=== PATIENT | female | born 1955 ===

== ENCOUNTER 2018-07-18 09:37 | Outpatient (CLI) | payer MEDICAID | END 2018-07-18 09:38 | disposition home or self-care (01) | LOC: C.PAT 09:37 ==

== ENCOUNTER 2018-07-27 12:11 | Inpatient (IN) | payer MEDICAID ==
[2018-07-27 12:11] VITALS: BMI 34.2
[2018-07-27 13:55] LABS: BASO # 0.1 K/uL (0.0-0.2); BASO % 0.8 % (0.0-2.0); EOS # 0.4 K/uL (0.0-0.7); EOS % 5.8 % (0.0-4.0); HEMOGLOBIN 12.6 g/dL (11.0-16.0); LYMPH # 2.6 K/uL (1.0-4.3); LYMPH % 41.1 % (20.0-40.0); MEAN CELL VOLUME 87.2 fL (81.0-99.0); MEAN CORPUSCULAR HEMOGLOBIN 28.8 pg (27.0-31.0); MEAN PLATELET VOLUME 8.9 fL (7.2-11.7); MONO # 0.7 K/uL (0.0-0.8); MONO % 10.7 % (0.0-10.0); NEUT # 2.7 K/uL (1.8-7.0); NEUT % 41.6 % (50.0-75.0); NRBC % 0.1 % (0.0-2.0); RBC 4.38 Mil/uL (3.80-5.20); RED CELL DISTRIBUTION WIDTH 14.2 % (11.5-14.5); WHITE BLOOD COUNT 6.4 K/uL (4.8-10.8)
[2018-07-27 14:22] LABS: CK-MB 0.81 ng/mL (0.0-3.38)
[2018-07-27 14:30] LABS: ALB/GLOB RATIO 1.5 (1.0-2.1); ALBUMIN 4.4 g/dL (3.5-5.0); ALT/SGPT < 6 U/L (9-52); AST/SGOT 35 U/L (14-36); BLOOD UREA NITROGEN 12 mg/dL (7-17); CALCIUM 9.6 mg/dl (8.6-10.4); GFR NON-AFRICAN AMERICAN > 60; LIPASE 38 U/L (23-300)
--- NOTE | 2018-07-27 14:40 | RAD ---
HISTORY: SOB COMPARISON: None available. TECHNIQUE: Chest PA and lateral FINDINGS: Examination limited by habitus. LUNGS: No focal consolidation. Please note that chest x-ray has limited sensitivity for the detection of pulmonary masses. PLEURA: No significant pleural effusion identified. No definite pneumothorax . CARDIOVASCULAR: Heart size appears top normal. No atherosclerotic calcification present. OSSEOUS STRUCTURES: Degenerative changes. VISUALIZED UPPER ABDOMEN: Unremarkable. OTHER FINDINGS: None. IMPRESSION: No focal consolidation.
--- NOTE | 2018-07-27 15:08 | C.PDOC ---
History Of Present Illness 63 y/o female presents to the ER complaining of chest pain which has been present for the past few months. Patient states that she had a stress test 1 month ago. Patient reports that her occupational therapy co director is . She notes that instructed to her to go the ER if she has chest pain. Denies having SOB, fever,chills, nausea, vomiting, and leg swelling. Time Seen by Provider: 07/27/18 13:21 Chief Complaint (Nursing): Chest Pain History Per: Patient History/Exam Limitations: no limitations Onset/Duration Of Symptoms: Days Current Symptoms Are (Timing): Still Present Severity: Moderate Past Medical History Reviewed: Historical Data, Nursing Documentation, Vital Signs Vital Signs: Last Vital Signs Temp 98.4 F 07/27/18 12:21 Pulse 69 07/27/18 12:21 Resp 18 07/27/18 12:21 BP 131/82 07/27/18 12:21 Pulse Ox 97 07/27/18 12:21 - Medical History PMH: Arthritis, HTN, Hypercholesterolemia Denies: CAD, CHF, Gastritis, Pancreatitis, Chronic Kidney Disease Surgical History: Cholecystectomy - [facility] Procedures INJECT/INFUSE NEC (08/05/13) NEBULIZER THERAPY (04/19/13) PHYSICAL THERAPY NEC (03/07/13) Family History: States: No Known Family Hx - Social History Hx Alcohol Use: No Hx Substance Use: No Review Of Systems Except As Marked, All Systems Reviewed And Found Negative. Constitutional: Negative for: Fever, Chills Cardiovascular: Positive for: Chest Pain Respiratory: Negative for: Shortness of Breath Gastrointestinal: Negative for: Nausea, Vomiting, Abdominal Pain Physical Exam - Physical Exam Appears: Non-toxic, No Acute Distress Skin: Normal Color, Warm, Dry Head: Atraumatic, Normacephalic Eye(s): bilateral: Normal Inspection Nose: Normal Oral Mucosa: Moist Neck: Supple Chest: Symmetrical, No Tenderness Cardiovascular: Rhythm Regular Respiratory: Normal Breath Sounds, No Rales, No Rhonchi, No Wheezing Gastrointestinal/Abdominal: Normal Exam, Soft, No Tenderness, No Guarding, No Re bound Neurological/Psych: Oriented x3, Normal Speech ED Course And Treatment - Laboratory Results Result Diagrams: 07/27/18 13:30 07/27/18 13:30 Lab Results: Troponin I < 0.0120 ng/mL (0.00-0.120) 07/27/18 13:30 Total Bilirubin 0.4 mg/dL (0.2-1.3) 07/27/18 13:30 AST 35 U/L (14-36) 07/27/18 13:30 ALT < 6 U/L (9-52) L 07/27/18 13:30 Alkaline Phosphatase 80 U/L (38-126) 07/27/18 13:30 Total Protein 7.3 g/dL (6.3-8.3) 07/27/18 13:30 Albumin 4.4 g/dL (3.5-5.0) 07/27/18 13:30 Globulin 2.9 gm/dL (2.2-3.9) 07/27/18 13:30 Albumin/Globulin Ratio 1.5 (1.0-2.1) 07/27/18 13:30 Lipase 38 U/L (23-300) 07/27/18 13:30 Lab Interpretation: Normal ECG: Interpreted By Me ECG Rhythm: Sinus Bradycardia, ST/T Changes ECG Interpretation: No Changes From Prior Rate From EC O2 Sat by Pulse Oximetry: 97 (RA) Pulse Ox Interpretation: Normal - Radiology CXR: Interpreted by Ny CXR Interpretation: Yes: No Acute Disease Progress Note: Case discussed with Dr Fraga who did recent stress test and found to be abnormal. Treated with medication. 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 - Scribe Statement The provider has reviewed the documentation as recorded by the Scribe Dae Almazan Provider Attestation All medical record entries made by the Scribe were at my direction and pe rsonally dictated by me. I have reviewed the chart and agree that the record accurately reflects my personal performance of the history, physical exam, medical decision making, and the department course for this patient. I have also personally directed, reviewed, and agree with the discharge instructions and disposition.
--- NOTE | 2018-07-27 16:31 | CP.PCM.PN ---
Subjective - Date & Time of Evaluation Date of Evaluation: 07/27/18 Time of Evaluation: 16:31 - Subjective Subjective: Medicine Progress Note - Dr Melgar's service Patient is a 63 year old female with past medical history of hypertension, hypercholesterolemia who presented to the emergency room for chest pain x 2 months. Patient states that the chest pain is left sided and intermittent in nature. Pain is worse at night and prevents her from being able to sleep. She follows with Dr Fraga who recently performed a stress test that was abnormal. She states that she never had a cardiac catherization before in the past. Patient states that she experiences dyspnea and fatigue when ambulating. Currently she states that the chest pain is 3/10 on pain scale. Patient took aspirin and Tylenol last night. She did not take anything for the pain prior to arrival. Offers no other complaints at this time Allergies: NKDA Medications: Imdur 15mg PO daily, Metoprolol 25mg PO daily, ASA 81mg, Crestor 20mg PO HS, Nitroglycerin 0.4mg Medical History: Hypertension, Hypercholesterolemia, Angina Surgical History: D+C, cholecystectomy, BTL Social History: Denies alcohol, tobacco, drug use Family History: DM, HTN Objective - Vital Signs/Intake and Output Vital Signs (last 24 hours): Temp Pulse Resp BP Pulse Ox 98.3 F 54 L 14 124/75 97 07/27/18 15:37 07/27/18 15:37 07/27/18 15:37 07/27/18 15:37 07/27/18 15:57 - Medications Medications: Current Medications Aspirin (Ecotrin) 81 mg PO DAILY [facility] Enoxaparin Sodium (Lovenox) 40 mg SC DAILY [facility] Pantoprazole Sodium (Protonix Inj) 40 mg IVP DAILY [facility] - Labs Labs: 07/27/18 13:30 07/27/18 13:30 - Constitutional Appears: Non-toxic, No Acute Distress - Head Exam Head Exam: ATRAUMATIC, NORMAL INSPECTION, NORMOCEPHALIC - Eye Exam Eye Exam: EOMI, Normal appearance - ENT Exam ENT Exam: Mucous Membranes Moist - Respiratory Exam Respiratory Exam: Clear to Ausculation Bilateral, NORMAL BREATHING PATTERN. absent: Rales, Rhonchi, Wheezes - Cardiovascular Exam Cardiovascular Exam: REGULAR RHYTHM, +S1, +S2. absent: Murmur - GI/Abdominal Exam GI & Abdominal Exam: Soft. absent: Guarding, Rigid, Tenderness - Extremities Exam Extremities Exam: absent: Calf Tenderness, Joint Swelling, Pedal Edema, Tenderness - Neurological Exam Neurological Exam: Alert, Awake, Oriented x3 - Psychiatric Exam Psychiatric exam: Normal Affect, Normal Mood - Skin Skin Exam: Dry, Normal Color, Warm Assessment and Plan - Assessment and Plan (Free Text) Assessment: Chest pain r/o ACS -Will monitor on telemetry -Initial troponin is negative, trend q6H x 2 -EKG showed NSR at 67 bpm -Continue Aspirin 81mg PO daily -F/U hemoglobin A1C, TSH, Lipid panel -Patient had abnormal stress test on 07/18/18 - hypertension precipitated by exercises, mild perfusion defect of the inferior wall of the left ventricle -CXR on admission showed no focal consolidation -We will order echocardiogram -Cardiology on consult, Dr Fraga, help appreciated Hypertension -Started on Metoprolol 25mg PO daily GI/DVT ppx : -Protonix 40mg IVP daily -Lovenox 40mg SC daily Plan discussed with Dr Talia Enriquez DO PGY-2
[2018-07-27 20:20] LABS: CK-MB 0.84 ng/mL (0.0-3.38)
[2018-07-28 01:48] LABS: SQUAMOUS EPITHIAL < 1 /hpf (0-5); URINE BILIRUBIN NEGATIVE (NEGATIVE); URINE BLOOD NEGATIVE (NEGATIVE); URINE CLARITY Clear (Clear); URINE COLOR Yellow (YELLOW); URINE GLUCOSE (UA) NORMAL (Normal); URINE LEUKOCYTE ESTERASE NEG Leu/uL (Negative); URINE PROTEIN NEGATIVE (NEGATIVE); URINE UROBILINOGEN NORMAL mg/dL (0.2-1.0)
[2018-07-28 02:21] LABS: CK-MB 0.73 ng/mL (0.0-3.38)
--- NOTE | 2018-07-28 07:00 | CP.PCM.PN ---
Subjective - Date & Time of Evaluation Date of Evaluation: 07/28/18 Time of Evaluation: 06:59 - Subjective Subjective: Medical Progress Note - Dr Melgar's Service Patient seen and examined at bedside. Per nursing no acute events overnight. Patient is doing well. She is NPO for cardiac catherization this afternoon. Objective - Vital Signs/Intake and Output Vital Signs (last 24 hours): Temp Pulse Resp BP Pulse Ox 98.2 F 53 L 20 124/81 99 07/27/18 23:30 07/27/18 23:30 07/27/18 23:30 07/27/18 23:30 07/27/18 23:30 Intake and Output: 07/27/18 07/28/18 18:59 06:59 Intake Total 10 Balance 10 - Medications Medications: Current Medications Aspirin (Ecotrin) 81 mg PO DAILY [facility] Enoxaparin Sodium (Lovenox) 40 mg SC DAILY [facility] Isosorbide Mononitrate (Imdur Er) 15 mg PO DAILY [facility] Metoprolol Succinate (Toprol Xl) 25 mg PO DAILY [facility] Pantoprazole Sodium (Protonix Inj) 40 mg IVP DAILY [facility] Pneumococcal Polyvalent Vaccine (Pneumovax 23 Vaccine) 0.5 ml IM .ONCE ONE Stop: 07/29/18 10:01 Rosuvastatin Calcium (Crestor) 20 mg PO HS [facility] Last Admin: 07/28/18 00:06 Dose: 20 mg - Labs Labs: 07/27/18 13:30 07/27/18 13:30 - Additional Findings Additional findings: - Constitutional Appears: Non-toxic, No Acute Distress - Head Exam Head Exam: ATRAUMATIC, NORMAL INSPECTION, NORMOCEPHALIC - Eye Exam Eye Exam: EOMI, Normal appearance - ENT Exam ENT Exam: Mucous Membranes Moist - Respiratory Exam Respiratory Exam: Clear to Ausculation Bilateral, NORMAL BREATHING PATTERN. absent: Rales, Rhonchi, Wheezes - Cardiovascular Exam Cardiovascular Exam: REGULAR RHYTHM, +S1, +S2. absent: Murmur - GI/Abdominal Exam GI & Abdominal Exam: Soft. absent: Guarding, Rigid, Tenderness - Extremities Exam Extremities Exam: absent: Calf Tenderness, Joint Swelling, Pedal Edema, Tenderness - Neurological Exam Neurological Exam: Alert, Awake, Oriented x3 - Psychiatric Exam Psychiatric exam: Normal Affect, Normal Mood - Skin Skin Exam: Dry, Normal Color, Warm Assessment and Plan - Assessment and Plan (Free Text) Assessment: Chest pain r/o ACS -Will monitor on telemetry -Troponins negative x 3 -EKG showed NSR at 67 bpm -Continue Aspirin 81mg PO daily, Lisinopril 10mg PO daily, Imdur 15mg PO daily, Crestor 20mg PO HS -Patient had abnormal stress test on 07/18/18 - hypertension precipitated by exercises, mild perfusion defect of the inferior wall of the left ventricle -CXR on admission showed no focal consolidation -Echocardiogram official report pending -NPO for cardiac catherization this afternnon -Cardiology on consult, Dr Fraga, help appreciated Hypertension -Started on Metoprolol 25mg PO daily GI/DVT ppx : -Protonix 40mg IVP daily -Lovenox 40mg SC daily Plan discussed with Dr Talia Enriquez DO PGY-2
[2018-07-28 08:21] LABS: BASO # 0.1 K/uL (0.0-0.2); BASO % 0.8 % (0.0-2.0); EOS # 0.4 K/uL (0.0-0.7); EOS % 5.8 % (0.0-4.0); HEMOGLOBIN 12.3 g/dL (11.0-16.0); LYMPH % 41.8 % (20.0-40.0); MEAN CELL VOLUME 86.9 fL (81.0-99.0); MEAN CORPUSCULAR HEMOGLOBIN 28.6 pg (27.0-31.0); MEAN CORPUSCULAR HGB CONC 32.9 g/dL (33.0-37.0); MEAN PLATELET VOLUME 8.9 fL (7.2-11.7); MONO # 0.7 K/uL (0.0-0.8); NEUT # 2.9 K/uL (1.8-7.0); NEUT % 41.6 % (50.0-75.0); NRBC % 0.2 % (0.0-2.0); RBC 4.32 Mil/uL (3.80-5.20); WHITE BLOOD COUNT 7.1 K/uL (4.8-10.8)
[2018-07-28 08:30] LABS: ALB/GLOB RATIO 1.5 (1.0-2.1); ALBUMIN 3.9 g/dL (3.5-5.0); ALT/SGPT 10 U/L (9-52); AST/SGOT 29 U/L (14-36); BLOOD UREA NITROGEN 12 mg/dL (7-17); CALCIUM 9.3 mg/dl (8.6-10.4); GFR NON-AFRICAN AMERICAN > 60; HDL CHOLESTEROL 43 mg/dL (30-70)
[2018-07-28 08:42] LABS: LDL CHOLESTEROL 47 mg/dL (0-129)
[2018-07-28] MEDS: Metoprolol Succinate 25 mg XL Tab PO SCH (09:41)
[2018-07-28] MEDS: Enoxaparin 40 mg Syringe SC SCH (09:41)
--- NOTE | 2018-07-28 10:09 | CP.PCM.CON ---
History of Present Illness - History of Present Illness History of Present Illness: Andrew Siddiqi, PGY-1, Cardiology Consult Note for Dr. Fraga 63 year old female with past medical history of hypertension presents with left sided chest pain radiating to the left arm and neck. Patient reports pain started a few months ago and describes the pain as "trapping". Pain is improved with nitroglycerin and worsened with exertion. Patient can walk less than half a block prior to having chest pain, shortness of breath, and nausea. Patient denies any other symptoms at this time. PMH: HTN PSH: cholecystectomy FMHx: denies SHx: denies tobacco, alcohol, or recreational drug use Allergies: NKDA PMD: Dr. Melgar Transit Bus Operator: Dr. Melgar No prior cardiac catheterizations Stress test was performed one month ago with unknown results. Review of Systems - Review of Systems Review of Systems: except as mentioned in HPI Past Patient History - Past Medical History & Family History Past Medical History?: Yes - Past Social History Smoking Status: Never Smoked - CARDIAC Hx Cardiac Disorders: Yes Hx Congestive Heart Failure: No Hx Hypercholesterolemia: Yes Hx Hypertension: Yes - PULMONARY Hx Respiratory Disorders: Yes Hx Pneumonia: Yes - NEUROLOGICAL Hx Neurological Disorder: No - HEENT Hx HEENT Problems: Yes Other/Comment: WEAR GLASSES FOR POOR VISION - RENAL Hx Chronic Kidney Disease: No - ENDOCRINE/METABOLIC Hx Endocrine Disorders: No - HEMATOLOGICAL/ONCOLOGICAL Hx Blood Disorders: No - INTEGUMENTARY Hx Dermatological Problems: No - MUSCULOSKELETAL/RHEUMATOLOGICAL Hx Falls: No - GASTROINTESTINAL Hx Gastrointestinal Disorders: No Hx Gastritis: No Hx Pancreatitis: No - GENITOURINARY/GYNECOLOGICAL Hx Genitourinary Disorders: No - PSYCHIATRIC Hx Substance Use: No - SURGICAL HISTORY Hx Surgeries: Yes Hx Cholecystectomy: Yes - ANESTHESIA Hx Anesthesia: Yes Hx Anesthesia Reactions: No Hx Malignant Hyperthermia: No Meds Allergies/Adverse Reactions: Allergies Allergy/AdvReac Type Severity Reaction Status Date / Time No Known Allergies Allergy Verified 07/18/18 09:48 - Medications Medications: Current Medications Aspirin (Ecotrin) 81 mg PO DAILY [facility] Last Admin: 07/28/18 09:41 Dose: Not Given Enoxaparin Sodium (Lovenox) 40 mg SC DAILY [facility] Last Admin: 07/28/18 09:41 Dose: Not Given Isosorbide Mononitrate (Imdur Er) 15 mg PO DAILY [facility] Last Admin: 07/28/18 09:41 Dose: Not Given Metoprolol Succinate (Toprol Xl) 25 mg PO DAILY [facility] Last Admin: 07/28/18 09:41 Dose: Not Given Pantoprazole Sodium (Protonix Inj) 40 mg IVP DAILY [facility] Last Admin: 07/28/18 09:41 Dose: Not Given Pneumococcal Polyvalent Vaccine (Pneumovax 23 Vaccine) 0.5 ml IM .ONCE ONE Stop: 07/29/18 10:01 Rosuvastatin Calcium (Crestor) 20 mg PO [facility] Last Admin: 07/28/18 00:06 Dose: 20 mg Physical Exam - Constitutional Appears: Well, Non-toxic, No Acute Distress - Head Exam Head Exam: ATRAUMATIC, NORMAL INSPECTION, NORMOCEPHALIC - Eye Exam Eye Exam: EOMI, PERRL - ENT Exam ENT Exam: Mucous Membranes Moist - Respiratory Exam Respiratory Exam: Clear to Auscultation Bilateral, NORMAL BREATHING PATTERN - Cardiovascular Exam Cardiovascular Exam: REGULAR RHYTHM, RRR, +S1, +S2 - GI/Abdominal Exam GI & Abdominal Exam: Normal Bowel Sounds, Soft. absent: Tenderness - Extremities Exam Extremities exam: Positive for: full ROM, normal inspection. Negative for: pedal edema - Neurological Exam Neurological exam: Alert, CN II-XII Intact, Oriented x3 - Skin Skin Exam: Dry, Intact Results - Vital Signs Recent Vital Signs: Last Vital Signs Temp 98.8 F 07/28/18 07:00 Pulse 50 L 07/28/18 08:07 Resp 18 07/28/18 07:00 BP 122/79 07/28/18 07:00 Pulse Ox 96 07/28/18 07:00 - Labs Result Diagrams: 07/28/18 08:07 07/28/18 08:07 Labs: Laboratory Results - last 24 hr 07/27/18 07/27/18 07/27/18 13:30 13:30 19:48 WBC 6.4 RBC 4.38 Hgb 12.6 Hct 38.2 MCV 87.2 MCH 28.8 MCHC 33.0 RDW 14.2 Plt Count 349 MPV 8.9 Neut % (Auto) 41.6 L Lymph % (Auto) 41.1 H [place] % (Auto) 10.7 H Eos % (Auto) 5.8 H Baso % (Auto) 0.8 Neut # (Auto) 2.7 Lymph # (Auto) 2.6 [place] # (Auto) 0.7 Eos # (Auto) 0.4 Baso # (Auto) 0.1 Sodium 137 Potassium 4.5 Chloride 102 Carbon Dioxide 32 H Anion Gap 8 L BUN 12 Creatinine 0.8 Est GFR ( Amer) > 60 Est GFR (Non-Af Amer) > 60 Random Glucose 79 Hemoglobin A1c Calcium 9.6 Total Bilirubin 0.4 AST 35 ALT < 6 L Alkaline Phosphatase 80 Total Creatine Kinase 75 CK-MB (Mass) 0.81 0.84 Troponin I < 0.0120 < 0.0120 Total Protein 7.3 Albumin 4.4 Globulin 2.9 Albumin/Globulin Ratio 1.5 Triglycerides Cholesterol LDL Cholesterol Direct HDL Cholesterol Lipase 38 Free T4 TSH 3rd Generation Urine Color Urine Clarity Urine pH Ur Specific Willows Urine Protein Urine Glucose (UA) Urine Ketones Urine Blood Urine Nitrate Urine Bilirubin Urine Urobilinogen Ur Leukocyte Esterase Urine WBC (Auto) Urine RBC (Auto) Ur Squamous Epith Cells 07/28/18 07/28/18 07/28/18 01:42 01:45 08:07 WBC 7.1 RBC 4.32 Hgb 12.3 Hct 37.5 MCV 86.9 MCH 28.6 MCHC 32.9 L RDW 14.0 Plt Count 316 MPV 8.9 Neut % (Auto) 41.6 L Lymph % (Auto) 41.8 H [place] % (Auto) 10.0 Eos % (Auto) 5.8 H Baso % (Auto) 0.8 Neut # (Auto) 2.9 Lymph # (Auto) 3.0 [place] # (Auto) 0.7 Eos # (Auto) 0.4 Baso # (Auto) 0.1 Sodium Potassium Chloride Carbon Dioxide Anion Gap BUN Creatinine Est GFR ( Amer) Est GFR (Non-Af Amer) Random Glucose Hemoglobin A1c Calcium Total Bilirubin AST ALT Alkaline Phosphatase Total Creatine Kinase 69 CK-MB (Mass) 0.73 Troponin I < 0.0120 Total Protein Albumin Globulin Albumin/Globulin Ratio Triglycerides Cholesterol LDL Cholesterol Direct HDL Cholesterol Lipase Free T4 TSH 3rd Generation Urine Color Yellow Urine Clarity Clear Urine pH 7.0 Ur Specific [place] 1.010 Urine Protein Negative Urine Glucose (UA) Normal Urine Ketones Negative Urine Blood Negative Urine Nitrate Negative Urine Bilirubin Negative Urine Urobilinogen Normal Ur Leukocyte Esterase Neg Urine WBC (Auto) < 1 Urine RBC (Auto) 1 Ur Squamous Epith Cells < 1 07/28/18 07/28/18 07/28/18 08:07 08:07 08:07 WBC RBC Hgb Hct MCV MCH MCHC RDW Plt Count MPV Neut % (Auto) Lymph % (Auto) [place] % (Auto) Eos % (Auto) Baso % (Auto) Neut # (Auto) Lymph # (Auto) [place] # (Auto) Eos # (Auto) Baso # (Auto) Sodium 137 Potassium 4.3 Chloride 100 Carbon Dioxide 35 H Anion Gap 7 L BUN 12 Creatinine 0.9 Est GFR ( Amer) > 60 Est GFR (Non-Af Amer) > 60 Random Glucose 86 Hemoglobin A1c 5.4 Calcium 9.3 Total Bilirubin 0.5 AST 29 ALT 10 Alkaline Phosphatase 73 Total Creatine Kinase CK-MB (Mass) Troponin I Total Protein 6.5 Albumin 3.9 Globulin 2.6 Albumin/Globulin Ratio 1.5 Triglycerides 135 Cholesterol 96 LDL Cholesterol Direct 47 HDL Cholesterol 43 Lipase Free T4 0.96 TSH 3rd Generation 3.43 Urine Color Urine Clarity Urine pH Ur Specific [place] Urine Protein Urine Glucose (UA) Urine Ketones Urine Blood Urine Nitrate Urine Bilirubin Urine Urobilinogen Ur Leukocyte Esterase Urine WBC (Auto) Urine RBC (Auto) Ur Squamous Epith Cells Assessment & Plan (1) Chest pain Assessment and Plan: EKG: NSR Tropx3: unremarkable HgbA1c: 5.4 Lipid panel unremarkable Continue with aspirin, imdur, zestril, metoprolol succinate, and rosuvastatin. Patient scheduled for cardiac catheterization today. Status: Acute (2) Hypertension Assessment and Plan: Continue with lisinopril and metoprolol succinate. Status: Acute - Date & Time Date: 07/28/18 Time: 10:09
[2018-07-28] MEDS ORDERED: Lidocaine 2% MPF (5 ml) Inj ONE (16:57)
[2018-07-28] MEDS ORDERED: Iohexol 350mg/ml 100 ML ONE (16:58)
[2018-07-28] MEDS ORDERED: Midazolam 2 MG/2 ML VIAL ONE (18:11)
--- NOTE | 2018-07-29 02:11 | CARDCATH ---
PROCEDURE DATE: 07/28/2018 INDICATIONS: Ms. Bob is a 63-year-old female who was having ongoing episodes of intermittent chest pain, underwent a nuclear stress test, which showed evidence of ischemia and therefore was brought to the hatchery laborer. The patient initially was scheduled for outpatient catheterization, but was turned down by insurance company. She continued to have recurrent bouts of chest pain and came to the ER. Because of recent abnormal nuclear stress test, it was decided to proceed with catheterization for further evaluation and treatment. PROCEDURES PERFORMED: Left heart catheterization with selective left and right coronary angiogram, left ventriculogram, 6-Maltese right femoral arterial access, Mynx closure device for hemostasis. ANGIOGRAPHIC FINDINGS: Left main large-sized vessel bifurcates into left anterior descending and left circumflex coronary artery. Left main free of any obstructive disease. Left circumflex runs in the AV groove. A large-sized vessel gives off 2 medium-sized obtuse marginal branches, free of any obstructive disease. LAD is a large-sized vessel, gives off small diagonal 1 and a medium-sized diagonal 2 branches. After the diagonal 2, there is 40% mid LAD myocardial bridging noted. It is a type 3 wraparound LAD. RCA is a large-sized vessel, gives off a RV marginal branch, right PDA and PLV. RCA is free of any obstructive disease, also gives a small-sized branch. Left ventricular ejection fraction is normal, 60% to 65%. LVEDP was 20. IMPRESSION: Mid left anterior descending myocardial bridge, nonobstructive coronary artery disease, normal left ventricular ejection fraction. RECOMMENDATIONS: Continue aggressive medical management and risk factor modification. The patient can be discharged home tomorrow. Fabricio Fraga MD
[2018-07-29 07:21] LABS: BASO % 0.7 % (0.0-2.0); EOS # 0.5 K/uL (0.0-0.7); EOS % 6.1 % (0.0-4.0); HEMOGLOBIN 12.8 g/dL (11.0-16.0); LYMPH # 2.5 K/uL (1.0-4.3); LYMPH % 34.5 % (20.0-40.0); MEAN CELL VOLUME 86.9 fL (81.0-99.0); MEAN CORPUSCULAR HEMOGLOBIN 28.6 pg (27.0-31.0); MEAN CORPUSCULAR HGB CONC 32.9 g/dL (33.0-37.0); MEAN PLATELET VOLUME 8.9 fL (7.2-11.7); MONO # 0.8 K/uL (0.0-0.8); MONO % 11.3 % (0.0-10.0); NEUT # 3.5 K/uL (1.8-7.0); NEUT % 47.4 % (50.0-75.0); RBC 4.47 Mil/uL (3.80-5.20); RED CELL DISTRIBUTION WIDTH 13.8 % (11.5-14.5); WHITE BLOOD COUNT 7.3 K/uL (4.8-10.8)
--- NOTE | 2018-07-29 07:39 | CP.PCM.PN ---
Subjective - Date & Time of Evaluation Date of Evaluation: 07/29/18 Time of Evaluation: 07:36 - Subjective Subjective: Andrew Siddiqi, PGY-1, Cardiology Progress Note for Dr. Fraga Patient seen and evaluated at bedside. Patient had no acute overnight events. Patient reports improvement in chest pain and shortness of breath today. Objective - Vital Signs/Intake and Output Vital Signs (last 24 hours): Temp Pulse Resp BP Pulse Ox 97.8 F 62 20 123/67 100 07/28/18 19:55 07/28/18 23:45 07/28/18 19:55 07/28/18 19:55 07/28/18 19:55 Intake and Output: 07/29/18 07/29/18 06:59 18:59 Intake Total 240 Balance 240 - Medications Medications: Current Medications Aspirin (Ecotrin) 81 mg PO DAILY [facility] Last Admin: 07/28/18 09:41 Dose: Not Given Enoxaparin Sodium (Lovenox) 40 mg SC DAILY [facility] Last Admin: 07/28/18 09:41 Dose: Not Given Isosorbide Mononitrate (Imdur Er) 15 mg PO DAILY [facility] Last Admin: 07/28/18 09:41 Dose: Not Given Lisinopril (Zestril) 10 mg PO DAILY [facility] Metoprolol Succinate (Toprol Xl) 25 mg PO DAILY [facility] Last Admin: 07/28/18 09:41 Dose: Not Given Pantoprazole Sodium (Protonix Inj) 40 mg IVP DAILY [facility] Last Admin: 07/28/18 09:41 Dose: Not Given Pneumococcal Polyvalent Vaccine (Pneumovax 23 Vaccine) 0.5 ml IM .ONCE ONE Stop: 07/29/18 10:01 Rosuvastatin Calcium (Crestor) 20 mg PO [facility] Last Admin: 07/28/18 21:02 Dose: 20 mg - Labs Labs: 07/29/18 07:04 07/28/18 08:07 - Constitutional Appears: Well, Non-toxic, No Acute Distress - Head Exam Head Exam: ATRAUMATIC, NORMAL INSPECTION, NORMOCEPHALIC - Eye Exam Eye Exam: EOMI, PERRL - ENT Exam ENT Exam: Mucous Membranes Moist - Respiratory Exam Respiratory Exam: Clear to Auscultation Bilateral, NORMAL BREATHING PATTERN - Cardiovascular Exam Cardiovascular Exam: REGULAR RHYTHM, RRR, +S1, +S2 - GI/Abdominal Exam GI & Abdominal Exam: Normal Bowel Sounds, Soft. absent: Tenderness - Extremities Exam Extremities exam: Positive for: full ROM, normal inspection. Negative for: pedal edema - Neurological Exam Neurological exam: Alert, CN II-XII Intact, Oriented x3 - Skin Skin Exam: Dry, Intact Assessment and Plan (1) Chest pain Assessment & Plan: EKG: NSR Tropx3: unremarkable HgbA1c: 5.4 Lipid panel unremarkable Cardiac catheterization: mid LAD myocardial bridge, nonobstructive CAD, normal LVEF Continue with aspirin, imdur, zestril, metoprolol succinate, and rosuvastatin. Patient is clear for discharge today from a cardiac standpoint. Status: Acute (2) Hypertension Assessment & Plan: Continue with lisinopril and metoprolol succinate. Status: Acute
--- NOTE | 2018-07-29 07:45 | CP.PCM.PN ---
Subjective - Date & Time of Evaluation Date of Evaluation: 07/29/18 Time of Evaluation: 09:15 - Subjective Subjective: Medical Progress Note - Dr Melgar's Service Patient seen and examined at bedside. No overnight events reported. Patient offers no complaints at this time. 12 point-ROS negative. Objective - Vital Signs/Intake and Output Vital Signs (last 24 hours): Temp Pulse Resp BP Pulse Ox 97.8 F 57 L 20 123/67 100 07/28/18 19:55 07/29/18 07:42 07/28/18 19:55 07/28/18 19:55 07/28/18 19:55 Intake and Output: 07/29/18 07/29/18 06:59 18:59 Intake Total 240 Balance 240 - Medications Medications: Current Medications Aspirin (Ecotrin) 81 mg PO DAILY [facility] Last Admin: 07/28/18 09:41 Dose: Not Given Enoxaparin Sodium (Lovenox) 40 mg SC DAILY [facility] Last Admin: 07/28/18 09:41 Dose: Not Given Isosorbide Mononitrate (Imdur Er) 15 mg PO DAILY [facility] Last Admin: 07/28/18 09:41 Dose: Not Given Lisinopril (Zestril) 10 mg PO DAILY [facility] Metoprolol Succinate (Toprol Xl) 25 mg PO DAILY [facility] Last Admin: 07/28/18 09:41 Dose: Not Given Pantoprazole Sodium (Protonix Inj) 40 mg IVP DAILY [facility] Last Admin: 07/28/18 09:41 Dose: Not Given Pneumococcal Polyvalent Vaccine (Pneumovax 23 Vaccine) 0.5 ml IM .ONCE ONE Stop: 07/29/18 10:01 Rosuvastatin Calcium (Crestor) 20 mg PO [facility] Last Admin: 07/28/18 21:02 Dose: 20 mg - Labs Labs: 07/29/18 07:04 07/28/18 08:07 - Neck Exam Additional comments: - Constitutional Appears: Non-toxic, No Acute Distress - Head Exam Head Exam: ATRAUMATIC, NORMAL INSPECTION, NORMOCEPHALIC - Eye Exam Eye Exam: EOMI, Normal appearance - ENT Exam ENT Exam: Mucous Membranes Moist - Respiratory Exam Respiratory Exam: Clear to Ausculation Bilateral, NORMAL BREATHING PATTERN. absent: Rales, Rhonchi, Wheezes - Cardiovascular Exam Cardiovascular Exam: REGULAR RHYTHM, +S1, +S2. absent: Murmur - GI/Abdominal Exam GI & Abdominal Exam: Soft. absent: Guarding, Rigid, Tenderness - Extremities Exam Extremities Exam: absent: Calf Tenderness, Joint Swelling, Pedal Edema, Tenderness - Neurological Exam Neurological Exam: Alert, Awake, Oriented x3 - Psychiatric Exam Psychiatric exam: Normal Affect, Normal Mood - Skin Skin Exam: Dry, Normal Color, Warm Assessment and Plan - Assessment and Plan (Free Text) Assessment: 63 year old female with PMHx of HTN, admitted for evaluation and treatment of chest pain r/o ACS. Plan: Chest pain r/o ACS S/P Cardiac Cath -Troponins negative x 3 -EKG showed NSR at 67 bpm -Continue Aspirin 81mg PO daily, Lisinopril 10mg PO daily, Imdur 15mg PO daily, Crestor 20mg PO HS -Patient had abnormal stress test on 07/18/18 - hypertension precipitated by exe rcises, mild perfusion defect of the inferior wall of the left ventricle -CXR on admission showed no focal consolidation -Echocardiogram official report pending -NPO for cardiac catherization this afternnon -Cardiology on consult, Dr Fraga, help appreciated Hypertension - Cont. Metoprolol 25mg PO daily GI/DVT ppx : -Protonix 40mg IVP daily -Lovenox 40mg SC daily Dispo: Cardiac catheterization showed mid LAD myocardial bridge, nonobstructive CAD, normal LVEF. Patient cleared for DC per Cardio. Will Discharge today. Prescriptions in the chart. Plan discussed with Dr Talia Petit, DO PGY-2
[2018-07-29 07:55] LABS: ALB/GLOB RATIO 1.4 (1.0-2.1); ALBUMIN 3.9 g/dL (3.5-5.0); ALT/SGPT 15 U/L (9-52); AST/SGOT 26 U/L (14-36); BLOOD UREA NITROGEN 18 mg/dL (7-17); CALCIUM 9.1 mg/dl (8.6-10.4); GFR NON-AFRICAN AMERICAN 56
[2018-07-29] MEDS: Enoxaparin 40 mg Syringe SC SCH (09:05)
[2018-07-29] MEDS: Metoprolol Succinate 25 mg XL Tab PO SCH (09:06)
[2018-07-29] MEDS ORDERED: Pneumococcal 23-Valent Vaccine IM ONE (10:00)
[2018-07-29 11:20] VITALS: PULSE 64
[2018-07-29 12:41] VITALS: BP 108/66; RESP 18; TEMP 98; O2SAT 97
--- NOTE | 2018-07-30 10:42 | CARD ---
APPROVED REPORT Date of service: 07/28/2018 EXAM: Two-dimensional and M-mode echocardiogram with Doppler and color Doppler. Other Information Quality : GoodRhythm : INDICATION Chest Pain 2D DIMENSIONS IVSd0.8 (0.7-1.1cm)LVDd4.4 (3.9-5.9cm) PWd0.9 (0.7-1.1cm)LA Opsnbe21 (18-58mL) LVDs2.8 (2.5-4.0cm)FS (%) 37.2 % LVEF (%)67.3 (>50%)LVEF (Espinosa's)69.72 % M-Mode DIMENSIONS Left Atrium (MM)3.69 (2.5-4.0cm)IVSd1.17 (0.7-1.1cm) Aortic Root3.39 (2.2-3.7cm)LVDd5.58 (4.0-5.6cm) Aortic Cusp Exc.2.06 (1.5-2.0cm)PWd1.00 (0.7-1.1cm) FS (%) 36 %LVDs3.58 (2.0-3.8cm) LVEF (%)65 (>50%) Mitral Valve MV E Cbjmknlz63.2cm/sMV A Idhxbzgb92.1cm/sE/A ratio0.8 TDI Lateral E' Peak V11.06cm/sMedial E' Peak V4.80cm/sE/Lateral E'5.7 E/Medial E'13.2 Tricuspid Valve TR Peak Apktzsjr693xf/sTR Peak Gr.27xbOlTRSC19bfPf LEFT VENTRICLE The left ventricle is normal size. There is mild concentric left ventricular hypertrophy. Left ventricle systolic function is normal. The Ejection Fraction is 65-70%. There is normal LV segmental wall motion. Tissue Doppler imaging reveals abnormal left ventricular diastolic dysfunction. No left ventricle thrombus noted on this study. There is no ventricular septal defect visualized. RIGHT VENTRICLE The right ventricle is normal size. The right ventricular systolic function is normal. ATRIA The left atrium size is normal. The right atrium size is normal. The interatrial septum is intact with no evidence for an atrial septal defect. AORTIC VALVE The aortic valve is normal in structure. No aortic regurgitation is present. There is no aortic valvular stenosis. There is no aortic valvular vegetation. MITRAL VALVE The mitral valve is normal in structure. There is no evidence of mitral valve prolapse. There is no mitral valve stenosis. Mitral regurgitation is mild. TRICUSPID VALVE The tricuspid valve is normal in structure. There is mild tricuspid regurgitation. There is no tricuspid valve prolapse or vegetation. There is no tricuspid valve stenosis. PULMONIC VALVE The pulmonary valve is normal in structure. GREAT VESSELS The aortic root is normal in size. <Conclusion> Left ventricle systolic function is normal. The Ejection Fraction is 65-70%. Tissue Doppler imaging reveals abnormal left ventricular diastolic dysfunction. The right ventricular systolic function is normal. Mitral regurgitation is mild. There is mild tricuspid regurgitation. The aortic root is normal in size.
--- NOTE | 2018-07-31 20:16 | CARD ---
APPROVED REPORT Date of service: 07/27/2018 EKG Measurement Heart [id number] <Conclusion> Normal sinus rhythm Moderate voltage criteria for LVH, may be normal variant Cannot rule out Septal infarct, age undetermined Abnormal ECG
--- NOTE | 2018-07-31 21:31 | HP ---
HISTORY OF PRESENT ILLNESS: The patient admitted to the hospital with chief complaint of chest pain. The patient had an abnormal stress test. PHYSICAL EXAMINATION: GENERAL: The patient is awake, alert,and oriented. VITAL SIGNS: Temperature 98, pulse 90. HEENT: Within normal limits. NECK: Supple. CHEST: Symmetrical. HEART: Regular. ABDOMEN: Soft. EXTREMITIES: No edema. IMPRESSION AND PLAN: The patient suffers from . The patient is to get bedrest, supportive care. Pop Melgar MD
== END 2018-07-29 12:39 | disposition home or self-care (01) | DRG 125 ==
LOC: C.ER 12:11 → C.9E 14:23 → C.6T 14:49
PROVIDERS: ADMIT Internal Medicine Pulmonary Disease; ATTEND Internal Medicine Pulmonary Disease
PROC: 4A023N7 Measurement of Cardiac Sampling and Pressure, Left Heart, Percutaneous Approach (ICD-10-PCS; principal; 2018-07-28)
PROC: B2051ZZ Plain Radiography of Left Heart using Low Osmolar Contrast (ICD-10-PCS; 2018-07-28)
PROC: B2011ZZ Plain Radiography of Multiple Coronary Arteries using Low Osmolar Contrast (ICD-10-PCS; 2018-07-28)
DX: I25.10 Atherosclerotic heart disease of native coronary artery without angina pectoris (principal); E11.9 Type 2 diabetes mellitus without complications; H54.7 Unspecified visual loss; I10 Essential (primary) hypertension; Q24.5 Malformation of coronary vessels